=== PATIENT | male | born 1985 | race Native Hawaiian/Other Pacific Islander ===

== ENCOUNTER 2018-11-18 14:26 | Emergency (ER) | payer MEDICAID ==
[~2018-11-18] VITALS: Ht 162.6 cm; Wt 63.5 kg
[2018-11-18 15:15] LABS: BASOPHILS ABSOLUTE AUTO 0.07 K/mm3 (0.00-0.23); BASOPHILS PERCENT AUTO 1 % (0-2); EOSINOPHILS ABSOLUTE AUTO 0.32 K/mm3 (0.00-0.68); EOSINOPHILS PERCENT AUTO 5 % (0-6); Hematocrit 35.4 % (37.0-53.0); Hemoglobin 10.4 g/dL (13.5-17.5); IMMATURE GRAN ABSOLUTE AUTO 0.03 K/mm3 (0.00-0.10); IMMATURE GRAN PERCENT AUTO 1 % (0-1); LYMPHOCYTES ABSOLUTE AUTO 1.08 K/mm3 (0.84-5.20); LYMPHOCYTES PERCENT AUTO 17 % (21-46); MONOCYTES ABSOLUTE AUTO 0.84 K/mm3 (0.16-1.47); MONOCYTES PERCENT AUTO 13 % (4-13); Mean Corpuscular HGB 21.3 pg (26.0-34.0); Mean Corpuscular HGB Conc 29.4 g/dL (31.5-36.5); Mean Corpuscular Volume 73 fL (80-100); Mean Platelet Volume 8.1 fL (9.1-12.4); NEUTROPHILS ABSOLUTE AUTO 4.01 K/mm3 (1.96-9.15); NEUTROPHILS PERCENT AUTO 63 % (41-73); Platelet Count 552 K/mm3 (150-400); RDW Standard Deviation 48.6 fL (35.1-46.3); Red Blood Cell Count 4.88 M/mm3 (4.30-5.90); White Blood Cell Count 6.35 K/mm3 (4.00-11.30)
[2018-11-18 15:44] LABS: Alanine Aminotransfer (ALT/SGP 29 U/L (12-78); Albumin, Blood 4.1 g/dL (3.4-5.0); Alk Phos 82 U/L (50-136); Anion Gap 12 mmol/L (6-16); Aspartate Aminotrans (AST/SGOT 16 U/L (12-37); Bilirubin, Total 0.3 mg/dL (0.1-1.0); Blood Urea Nitrogen 16 mg/dL (8-24); Bun/Creatinine Ratio 17.3 (12.0-20.0); C-REACTIVE PROTEIN, EXT RANGE <0.290 mg/dL (0.000-0.300); CO2, Blood 23 mmol/L (21-32); Calcium, Blood 9.3 mg/dL (8.5-10.1); Chloride, Blood 106 mmol/L (98-108); Creatinine, Blood 0.92 mg/dL (0.60-1.20); Globulin, Blood 4.1 g/dL (2.2-4.0); Glomerular Filtration Rate >60 (60-); Glucose, Blood 114 mg/dL (70-99); Potassium, Blood 3.7 mmol/L (3.5-5.5); Sodium, Blood 141 mmol/L (136-145); Total Protein, Blood 8.2 g/dL (6.4-8.2)
[2018-11-18] MEDS ORDERED: Norco 5-325 Ta1 EACH PO (17:39)
[2018-11-18] MEDS ORDERED: Robaxin-750750 MG PO (17:39)
== END 2018-11-18 17:54 | disposition home or self-care (01) ==
LOC: ER 14:26
PROVIDERS: Physician Assistant
DX: M54.17 Radiculopathy, lumbosacral region (principal)
CPT/HCPCS: 72100; 80053; 85025; 85651; 86140; 96374; 96375; 99283-25; J1170; J2405

== ENCOUNTER 2018-11-28 09:46 | Inpatient (IN) | payer OTHER ==
[~2018-11-28] VITALS: Ht 162.6 cm; Wt 71.4 kg
[~2018-11-28 09:46] MED LIST: Norco 5-325 Ta1 EACH PO; Robaxin-750750 MG PO
[2018-11-28 10:34] LABS: BASOPHILS ABSOLUTE AUTO 0.07 K/mm3 (0.00-0.23); BASOPHILS PERCENT AUTO 1 % (0-2); EOSINOPHILS ABSOLUTE AUTO 0.35 K/mm3 (0.00-0.68); EOSINOPHILS PERCENT AUTO 5 % (0-6); Hematocrit 38.9 % (37.0-53.0); Hemoglobin 11.3 g/dL (13.5-17.5); IMMATURE GRAN ABSOLUTE AUTO 0.03 K/mm3 (0.00-0.10); IMMATURE GRAN PERCENT AUTO 1 % (0-1); LYMPHOCYTES ABSOLUTE AUTO 1.15 K/mm3 (0.84-5.20); LYMPHOCYTES PERCENT AUTO 18 % (21-46); MONOCYTES ABSOLUTE AUTO 0.79 K/mm3 (0.16-1.47); MONOCYTES PERCENT AUTO 12 % (4-13); Mean Corpuscular HGB 21.1 pg (26.0-34.0); Mean Corpuscular Volume 73 fL (80-100); Mean Platelet Volume 8.6 fL (9.1-12.4); NEUTROPHILS ABSOLUTE AUTO 4.11 K/mm3 (1.96-9.15); NEUTROPHILS PERCENT AUTO 63 % (41-73); Platelet Count 509 K/mm3 (150-400); RDW Coefficient Variation 19.6 % (11.7-14.2); RDW Standard Deviation 48.9 fL (35.1-46.3); Red Blood Cell Count 5.36 M/mm3 (4.30-5.90)
[2018-11-28 10:51] LABS: Alanine Aminotransfer (ALT/SGP 33 U/L (12-78); Albumin, Blood 4.3 g/dL (3.4-5.0); Alk Phos 91 U/L (50-136); Anion Gap 8 mmol/L (6-16); Aspartate Aminotrans (AST/SGOT 24 U/L (12-37); Bilirubin, Total 0.3 mg/dL (0.1-1.0); Blood Urea Nitrogen 8 mg/dL (8-24); Bun/Creatinine Ratio 8.8 (12.0-20.0); CO2, Blood 25 mmol/L (21-32); Calcium, Blood 9.5 mg/dL (8.5-10.1); Chloride, Blood 105 mmol/L (98-108); Creatinine, Blood 0.91 mg/dL (0.60-1.20); Globulin, Blood 4.3 g/dL (2.2-4.0); Glomerular Filtration Rate >60 (60-); Glucose, Blood 101 mg/dL (70-99); Sodium, Blood 138 mmol/L (136-145); Total Protein, Blood 8.6 g/dL (6.4-8.2)
--- NOTE | 2018-11-28 13:20 | NUR ---
REPORT RECIEVED FROM CONNOR BOO RN. PT ARRIVED TO PCU 11 VIA GURNEY AND TRANSFERRED TO BED IND. PT IS ALERT AND OX3. PT REPORTS FALLING A COUPLE OF WEEKS AGO AND HITTING HIS BACK ON A STOVE. PT REPORTS HE HAD PAIN AFTER HIS FALL, PAIN IN HIS RIGHT LOWER FLANK THAT HE RATES AT A 9/10. ADDITIONAL TAB OF OXYCODONE GIVEN AT THIS TIME PER MD ORDERS. PT STATES HE CAME IN BECAUSE HE HAS A HX OF GI BLEED AND IS FMAILIAR WITH THE SIGNS AND SYMPTOMS. PT STATES HIS STOOL AT HOME HAS BEEN GOING FROM DARK AND TARRY TO [place]. PT STATES WHEN THE STOOL IS DARKER HE HAS PAIN IN HIS ABDOMEN. LS CTA, BIOX WNL ON RA. BT+. PT IS TENDER TO RLQ WITH LIGHT PALPATION. ABD SOFT. PPP. NO EDEMA PRESENT. 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 VSS. GI CONSULT CALLED INTO ANSWERING SERVICE.
[2018-11-28 15:06] LABS: Hematocrit 35.4 % (37.0-53.0); Hemoglobin 10.3 g/dL (13.5-17.5)
--- NOTE | 2018-11-28 17:47 | NUR ---
VSS. ASSESSMENT UNCHAGED. GOLYTELY STARTED.
--- NOTE | 2018-11-28 19:09 | NUR ---
PT HAS STARTED THE GOLYTELY PREP FOR COLONSCOPY PER DR. ARIAS ORDERS, PLAN TO SCOPE AT 9 AM. PT TOLERATING PREP WELL. NO ACUTE CHANGES THIS SHIFT, WILL REPORT TO ONCOMING RN.
[2018-11-28 21:16] LABS: Hematocrit 34.7 % (37.0-53.0); Hemoglobin 10.3 g/dL (13.5-17.5)
[2018-11-29 04:14] LABS: BASOPHILS ABSOLUTE AUTO 0.06 K/mm3 (0.00-0.23); BASOPHILS PERCENT AUTO 1 % (0-2); EOSINOPHILS ABSOLUTE AUTO 0.62 K/mm3 (0.00-0.68); EOSINOPHILS PERCENT AUTO 11 % (0-6); Hemoglobin 9.7 g/dL (13.5-17.5); IMMATURE GRAN ABSOLUTE AUTO 0.03 K/mm3 (0.00-0.10); IMMATURE GRAN PERCENT AUTO 1 % (0-1); LYMPHOCYTES ABSOLUTE AUTO 1.45 K/mm3 (0.84-5.20); LYMPHOCYTES PERCENT AUTO 25 % (21-46); MONOCYTES ABSOLUTE AUTO 0.84 K/mm3 (0.16-1.47); MONOCYTES PERCENT AUTO 14 % (4-13); Mean Corpuscular HGB Conc 28.5 g/dL (31.5-36.5); Mean Corpuscular Volume 74 fL (80-100); Mean Platelet Volume 8.3 fL (9.1-12.4); NEUTROPHILS ABSOLUTE AUTO 2.84 K/mm3 (1.96-9.15); NEUTROPHILS PERCENT AUTO 49 % (41-73); Platelet Count 455 K/mm3 (150-400); RDW Coefficient Variation 18.6 % (11.7-14.2); RDW Standard Deviation 49.3 fL (35.1-46.3); Red Blood Cell Count 4.61 M/mm3 (4.30-5.90); White Blood Cell Count 5.84 K/mm3 (4.00-11.30)
[2018-11-29 04:33] LABS: Anion Gap 5 mmol/L (6-16); Blood Urea Nitrogen 6 mg/dL (8-24); Bun/Creatinine Ratio 6.5 (12.0-20.0); CO2, Blood 27 mmol/L (21-32); Calcium, Blood 8.2 mg/dL (8.5-10.1); Chloride, Blood 105 mmol/L (98-108); Creatinine, Blood 0.93 mg/dL (0.60-1.20); Glomerular Filtration Rate >60 (60-); Glucose, Blood 95 mg/dL (70-99); Sodium, Blood 137 mmol/L (136-145)
--- NOTE | 2018-11-29 04:41 | NUR ---
SHIFT SUMMARY: PATIENT TO BE NPO AT 0600 FOR PROCEEDURE AT APPROX 0900. PATIENT VSS, NO ISSUES, COMPLIANT WITH CALL LIGHT AND DIRECTIONS, BED LOW AND LOCKED.
--- NOTE | 2018-11-29 07:34 | NUR ---
RECEIVED REPORT FROM LAKSHMI JETER, AND ASSUMED CARE OF PT.
--- NOTE | 2018-11-29 08:28 | NUR ---
PT TAKEN TO DAY SURGERY FOR COLONOSCOPY VIA [facility].
--- NOTE | 2018-11-29 08:43 | NUR ---
Ambulatory in PCU FROM BED TO [facility] Patient states colon prep results clear. History, Chart, Medications and Allergies reviewed before start of procedure.Lungs clear T/O to Auscultation. Patient confirms NPO status and agrees with scheduled surgery. Pre-Op teaching done. Pt verbalizes understanding.
[2018-11-29 08:50] LABS: Hemoglobin 9.9 g/dL (13.5-17.5)
--- NOTE | 2018-11-29 09:02 | NUR ---
11/29/18 0902 Emmanuel Quinonez PATIENT DETERMINED TO BE ASA APPROPRIATE FOR PROPOFOL SEDATION PRIOR TO START OF PROCEDURE BY . 3-LEAD EKG REVIEWED WITH PHYSICIAN PRIOR TO START OF PROCEDURE.PATIENT CONFIRMS NPO STATUS AND AGREES WITH SCHEDULED PROCEDURE.History, Chart, Medications and Allergies reviewed before start of procedure.MONITOR INTACT WITH CONTINUOUS PULSE OXIMETRY AND INTERMITTENT BP.O2 VIA N/C INTACT THROUGHOUT SEDATION/PROCEDURE.Bite Block Placed
--- NOTE | 2018-11-29 11:43 | NUR ---
THIS RN BEEN GIVEN REPORT AND IS ASSUMING CARE OF PT AT THIS TIME.
--- NOTE | 2018-11-29 11:43 | NUR ---
PT TO ROOM 224. FAMILY WITH PT.
--- NOTE | 2018-11-29 12:05 | NUR ---
CALLED REPORT TO LAKSHMI DOTSON, ON SURGICAL FLOOR, WHOM WILL ACCEPT CARE OF PT UPON TRANSFER TO ROOM 224. PT ESCORTED TO ROOM 224 BY TEQUILA QUINONEZ, VIA WHEELCHAIR.
--- NOTE | 2018-11-29 13:07 | NUR ---
DR SCHOFIELD HERE TO SEE PT.
--- NOTE | 2018-11-29 14:35 | NUR ---
PT REQ TO HAVE NORCO PILL REPORTS OXY MADE HIM ITCH SOME. SEE ORDER.
--- NOTE | 2018-11-29 16:38 | NUR ---
SHIFT SUMMARY PT WAS PCU TRANSFER TODAY. DR SCHOFIELD CAME TO SEE PT. PT EATING AND DRINKING. PT BEEN MED PRN FOR PAIN. PT BEEN ENC TO MINIMIZE NARCOTICS PER DR SCHOFIELD. PT BEEN UP IND IN ROOM IND.
--- NOTE | 2018-11-30 05:59 | NUR ---
SUMMARY: NO ACUTE CHANGE TONIGHT. PT IS A/O, VSS. REPORTS PAIN IN ABD AND BACK PAIN. PT REPORTS OXYCODONE MAKES HIS SKIN ITCH, FENTANYAL GIVEN. HAVING LIQUID STOOL, NO REPORT OF BLOODY BM. PT IS INDEPENDENT IN ROOM. NO SAFETY CONCERNS AT THIS TIME. WILL CTM AND REPORT TO DAY RN.
--- NOTE | 2018-11-30 16:04 | NUR ---
PT PROVIDED WITH LIST OF ACCEPTING PRIMARY CARE PROVIDERS. WILL CONTINUE TO MONITOR.
[2018-11-30] MEDS ORDERED: ACET325 PO (16:11)
[2018-11-30] MEDS ORDERED: CYCL10 PO (16:11)
--- NOTE | 2018-11-30 18:20 | NUR ---
DISCHARGE PT AND S/O PROVIDED WITH WRITTEN AND VERBAL DISCHARGE INSTRUCTIONS. THEY REPORTED UNDERSTANDING QUESTIONS WERE ANSWERED. JEFFERY CALLED TO [facility] PER PT REQUEST. PT ESCORTED OUT IN W/C BY CATHRYN MANDEL.
== END 2018-11-30 18:15 | disposition home or self-care (01) | DRG 394 ==
LOC: ER 09:46 → SURS 11:53 → PCU 11:53 → SURS 11-29 11:31
PROVIDERS: Emergency Medicine; Internal Medicine Gastroenterology; ADMIT Hospitalist
PROC: 0DJ08ZZ Inspection of Upper Intestinal Tract, Via Natural or Artificial Opening Endoscopic (ICD-10-PCS; principal; 2018-11-29 09:00)
PROC: 0DJD8ZZ Inspection of Lower Intestinal Tract, Via Natural or Artificial Opening Endoscopic (ICD-10-PCS; 2018-11-29 09:00)
DX: K64.2 Third degree hemorrhoids (principal); D62 Acute posthemorrhagic anemia; K50.00 Crohn's disease of small intestine without complications; Q85.00 Neurofibromatosis, unspecified; F17.210 Nicotine dependence, cigarettes, uncomplicated; I10 Essential (primary) hypertension; D12.0 Benign neoplasm of cecum; K62.89 Other specified diseases of anus and rectum; M54.5 Low back pain
CPT/HCPCS: 36415; 74177; 80048; 80053; 85014; 85018; 85025; 86850; 86900; 86901; 88305; 97110; 97162; 99285; A9270; A9270-GY; C9113; J0171; J2250; J2704; J3010; J3480; J7120; Q0163; Q9967

== ENCOUNTER 2018-12-10 13:31 | Emergency (ER) | payer OTHER ==
[~2018-12-10] VITALS: Ht 162.6 cm; Wt 68.0 kg
[~2018-12-10 13:31] MED LIST changes: +ACET325 PO; +CYCL10 PO
[2018-12-10 14:16] LABS: Source, Urine Clean Catch
[2018-12-10 14:17] LABS: BASOPHILS ABSOLUTE AUTO 0.06 K/mm3 (0.00-0.23); BASOPHILS PERCENT AUTO 1 % (0-2); EOSINOPHILS ABSOLUTE AUTO 0.34 K/mm3 (0.00-0.68); EOSINOPHILS PERCENT AUTO 6 % (0-6); Hematocrit 35.6 % (37.0-53.0); Hemoglobin 10.4 g/dL (13.5-17.5); IMMATURE GRAN ABSOLUTE AUTO 0.03 K/mm3 (0.00-0.10); IMMATURE GRAN PERCENT AUTO 1 % (0-1); LYMPHOCYTES ABSOLUTE AUTO 0.85 K/mm3 (0.84-5.20); LYMPHOCYTES PERCENT AUTO 15 % (21-46); MONOCYTES ABSOLUTE AUTO 0.68 K/mm3 (0.16-1.47); MONOCYTES PERCENT AUTO 12 % (4-13); Mean Corpuscular HGB 21.2 pg (26.0-34.0); Mean Corpuscular HGB Conc 29.2 g/dL (31.5-36.5); Mean Corpuscular Volume 73 fL (80-100); Mean Platelet Volume 8.3 fL (9.1-12.4); NEUTROPHILS ABSOLUTE AUTO 3.63 K/mm3 (1.96-9.15); NEUTROPHILS PERCENT AUTO 65 % (41-73); Platelet Count 627 K/mm3 (150-400); RDW Coefficient Variation 18.5 % (11.7-14.2); RDW Standard Deviation 48.3 fL (35.1-46.3); White Blood Cell Count 5.59 K/mm3 (4.00-11.30)
[2018-12-10 14:22] LABS: Bilirubin, Urine Neg (Neg); Blood, Urine Neg (Neg); Glucose Qualitative, Urine Neg (Neg); Ketones, Urine Neg (Neg); Leukocyte Esterase, Urine Neg (Neg); Nitrite, Urine Neg (Neg); Protein, Urine Neg (Neg); Urobilinogen, Urine NORM (Normal)
[2018-12-10 14:33] LABS: Appearance, Urine Clear (Clear); Color, Urine Yellow (P-Yellow)
[2018-12-10 14:35] LABS: Alanine Aminotransfer (ALT/SGP 32 U/L (12-78); Albumin, Blood 4.1 g/dL (3.4-5.0); Alk Phos 77 U/L (50-136); Anion Gap 7 mmol/L (6-16); Aspartate Aminotrans (AST/SGOT 14 U/L (12-37); Bilirubin, Total 0.3 mg/dL (0.1-1.0); Blood Urea Nitrogen 14 mg/dL (8-24); Bun/Creatinine Ratio 16.7 (12.0-20.0); CO2, Blood 24 mmol/L (21-32); Calcium, Blood 9.4 mg/dL (8.5-10.1); Chloride, Blood 107 mmol/L (98-108); Creatinine, Blood 0.84 mg/dL (0.60-1.20); Globulin, Blood 4.2 g/dL (2.2-4.0); Glomerular Filtration Rate >60 (60-); Glucose, Blood 92 mg/dL (70-99); Potassium, Blood 3.9 mmol/L (3.5-5.5); Sodium, Blood 138 mmol/L (136-145); Total Protein, Blood 8.3 g/dL (6.4-8.2)
== END 2018-12-10 17:14 | disposition home or self-care (01) ==
LOC: ER 13:31
PROVIDERS: Physician Assistant
DX: K64.2 Third degree hemorrhoids (principal); D64.9 Anemia, unspecified; Z87.891 Personal history of nicotine dependence
CPT/HCPCS: 36415; 80053; 81003; 82272; 85025; 86850; 86900; 86901; 99283

== ENCOUNTER 2018-12-29 15:54 | Emergency (ER) | payer OTHER ==
[~2018-12-29] VITALS: Ht 162.6 cm; Wt 73.0 kg
[2018-12-29 16:52] LABS: BASOPHILS ABSOLUTE AUTO 0.07 K/mm3 (0.00-0.23); BASOPHILS PERCENT AUTO 1 % (0-2); EOSINOPHILS ABSOLUTE AUTO 0.43 K/mm3 (0.00-0.68); EOSINOPHILS PERCENT AUTO 8 % (0-6); Hematocrit 34.2 % (37.0-53.0); IMMATURE GRAN ABSOLUTE AUTO 0.04 K/mm3 (0.00-0.10); IMMATURE GRAN PERCENT AUTO 1 % (0-1); LYMPHOCYTES ABSOLUTE AUTO 1.03 K/mm3 (0.84-5.20); LYMPHOCYTES PERCENT AUTO 19 % (21-46); MONOCYTES ABSOLUTE AUTO 0.71 K/mm3 (0.16-1.47); MONOCYTES PERCENT AUTO 13 % (4-13); Mean Corpuscular HGB 20.6 pg (26.0-34.0); Mean Corpuscular HGB Conc 29.2 g/dL (31.5-36.5); Mean Corpuscular Volume 70 fL (80-100); Mean Platelet Volume 8.3 fL (9.1-12.4); NEUTROPHILS ABSOLUTE AUTO 3.11 K/mm3 (1.96-9.15); NEUTROPHILS PERCENT AUTO 58 % (41-73); Platelet Count 562 K/mm3 (150-400); RDW Coefficient Variation 18.8 % (11.7-14.2); RDW Standard Deviation 45.4 fL (35.1-46.3); Red Blood Cell Count 4.86 M/mm3 (4.30-5.90); White Blood Cell Count 5.39 K/mm3 (4.00-11.30)
[2018-12-29 17:16] LABS: Alanine Aminotransfer (ALT/SGP 26 U/L (12-78); Alk Phos 83 U/L (50-136); Anion Gap 8 mmol/L (6-16); Aspartate Aminotrans (AST/SGOT 14 U/L (12-37); Bilirubin, Total 0.4 mg/dL (0.1-1.0); Blood Urea Nitrogen 12 mg/dL (8-24); Bun/Creatinine Ratio 13.4 (12.0-20.0); CO2, Blood 24 mmol/L (21-32); Calcium, Blood 9.5 mg/dL (8.5-10.1); Chloride, Blood 105 mmol/L (98-108); Creatinine, Blood 0.89 mg/dL (0.60-1.20); Globulin, Blood 3.9 g/dL (2.2-4.0); Glomerular Filtration Rate >60 (60-); Glucose, Blood 113 mg/dL (70-99); Potassium, Blood 3.7 mmol/L (3.5-5.5); Sodium, Blood 137 mmol/L (136-145); Total Protein, Blood 7.9 g/dL (6.4-8.2)
[2018-12-29 19:33] LABS: Source, Urine Clean Catch
[2018-12-29 19:40] LABS: Bilirubin, Urine Neg (Neg); Blood, Urine Neg (Neg); Glucose Qualitative, Urine Neg (Neg); Ketones, Urine Neg (Neg); Leukocyte Esterase, Urine Neg (Neg); Nitrite, Urine Neg (Neg); Protein, Urine 1+ (Neg); Urobilinogen, Urine NORM (Normal)
[2018-12-29 19:42] LABS: Appearance, Urine Clear (Clear); Color, Urine Yellow (P-Yellow)
[2018-12-29] MEDS ORDERED: RECTICARE30 GM PR (20:50)
== END 2018-12-29 21:36 | disposition home or self-care (01) ==
LOC: ER 15:54
PROVIDERS: Physician Assistant
DX: K92.2 Gastrointestinal hemorrhage, unspecified (principal); Z87.891 Personal history of nicotine dependence
CPT/HCPCS: 36415; 80053; 85025; 86850; 86900; 86901; 99283

== ENCOUNTER 2018-12-30 08:49 | Emergency (ER) | payer OTHER ==
[~2018-12-30] VITALS: Ht 177.8 cm; Wt 86.2 kg
[~2018-12-30 08:49] MED LIST changes: +RECTICARE30 GM PR
== END 2018-12-30 09:51 | disposition home or self-care (01) ==
LOC: ER 08:49
DX: K64.9 Unspecified hemorrhoids (principal)
CPT/HCPCS: 99283; J3010

== ENCOUNTER 2019-01-05 14:33 | Emergency (ER) | payer OTHER ==
[~2019-01-05] VITALS: Ht 162.6 cm; Wt 73.0 kg
[2019-01-05] MEDS ORDERED: Norco 5-325 Ta1 EACH PO (14:42)
== END 2019-01-05 16:25 | disposition home or self-care (01) ==
LOC: ER 14:33
DX: K62.89 Other specified diseases of anus and rectum (principal)
CPT/HCPCS: 99283; J2250

== ENCOUNTER 2019-01-06 12:05 | Day surgery (SDC) | payer OTHER ==
[~2019-01-06] VITALS: Ht 162.6 cm; Wt 70.4 kg
--- NOTE | 2019-01-06 12:47 | NUR ---
History, Chart, Medications and Allergies reviewed before start of procedure. Lungs clear T/O to Auscultation. Patient confirms NPO status and agrees with scheduled surgery. Pre-Op teaching done. Pt verbalizes understanding. Patient States Post-Procedure ride home has been arranged.
--- NOTE | 2019-01-06 14:38 | NUR ---
01/06/19 1438 Aguilar Wells NO PRE-OP ANTIBIOTICS ORDERED.
--- NOTE | 2019-01-06 17:34 | NUR ---
patient declined getting dressed at this time. talking with gene on phone at this time
--- NOTE | 2019-01-06 17:34 | NUR ---
offered to let patient get dressed while waiting for fiance to come back from pharmacy
--- NOTE | 2019-01-06 18:09 | NUR ---
gene has returned form pharmacy. calling will call ride to come and get. discharge instructions gone over with.
--- NOTE | 2019-01-06 18:22 | NUR ---
discharged at this time with all belongings and discharge instructions. iv removed Patient States Post-Procedure ride home has been arranged. Discharged via wheelchair to private car for ride home.
== END 2019-01-06 22:50 | disposition home or self-care (01) ==
LOC: ORSCMMR 12:05 → ORD 14:00 → ORSCMMR 14:00
PROVIDERS: Surgery
PROC: 06BY0ZC Excision of Hemorrhoidal Plexus, Open Approach (ICD-10-PCS; principal; 2019-01-06 14:00)
DX: K64.2 Third degree hemorrhoids (principal); K62.5 Hemorrhage of anus and rectum; Z87.891 Personal history of nicotine dependence
CPT/HCPCS: 88304; J1100; J1200; J1885; J2250; J2405; J2704; J3010; J7120

== ENCOUNTER 2019-03-04 08:45 | Emergency (ER) | payer OTHER ==
[~2019-03-04] VITALS: Ht 162.6 cm; Wt 74.8 kg
[2019-03-04 09:08] LABS: BASOPHILS ABSOLUTE AUTO 0.04 K/mm3 (0.00-0.23); BASOPHILS PERCENT AUTO 1 % (0-2); EOSINOPHILS ABSOLUTE AUTO 0.23 K/mm3 (0.00-0.68); EOSINOPHILS PERCENT AUTO 5 % (0-6); Hematocrit 38.4 % (37.0-53.0); Hemoglobin 10.9 g/dL (13.5-17.5); IMMATURE GRAN ABSOLUTE AUTO 0.01 K/mm3 (0.00-0.10); IMMATURE GRAN PERCENT AUTO 0 % (0-1); LYMPHOCYTES ABSOLUTE AUTO 0.66 K/mm3 (0.84-5.20); LYMPHOCYTES PERCENT AUTO 15 % (21-46); MONOCYTES PERCENT AUTO 11 % (4-13); Mean Corpuscular HGB 19.8 pg (26.0-34.0); Mean Corpuscular HGB Conc 28.4 g/dL (31.5-36.5); Mean Corpuscular Volume 70 fL (80-100); Mean Platelet Volume 8.4 fL (9.1-12.4); NEUTROPHILS ABSOLUTE AUTO 3.12 K/mm3 (1.96-9.15); NEUTROPHILS PERCENT AUTO 68 % (41-73); Platelet Count 566 K/mm3 (150-400); RDW Coefficient Variation 19.9 % (11.7-14.2); RDW Standard Deviation 48.3 fL (35.1-46.3); Red Blood Cell Count 5.51 M/mm3 (4.30-5.90); White Blood Cell Count 4.56 K/mm3 (4.00-11.30)
[2019-03-04 09:21] LABS: Anion Gap 8 mmol/L (6-16); Blood Urea Nitrogen 15 mg/dL (8-24); Bun/Creatinine Ratio 15.7 (12.0-20.0); CO2, Blood 24 mmol/L (21-32); Calcium, Blood 9.6 mg/dL (8.5-10.1); Chloride, Blood 106 mmol/L (98-108); Creatinine, Blood 0.96 mg/dL (0.60-1.20); Glomerular Filtration Rate >60 (60-); Glucose, Blood 95 mg/dL (70-99); Potassium, Blood 3.7 mmol/L (3.5-5.5); Sodium, Blood 138 mmol/L (136-145)
[2019-03-04] MEDS ORDERED: Acetaminophen-1 EAC1 PO (10:32)
[2019-03-04] MEDS ORDERED: IBUP800 PO (10:32)
== END 2019-03-04 10:54 | disposition home or self-care (01) ==
LOC: ER 08:45
PROVIDERS: Emergency Medicine
DX: R07.89 Other chest pain (principal); F17.200 Nicotine dependence, unspecified, uncomplicated
CPT/HCPCS: 71046; 80048; 85025; 93005; 93010; 96374; 96375; 96376; 99284-25; J1885; J2405; J3010

== ENCOUNTER → 2019-05-14 | Outpatient (CLI) | payer OTHER ==
[~2019-05-14] MED LIST changes: +Acetaminophen-1 EAC1 PO; +IBUP800 PO
== END | disposition home or self-care (01) ==
LOC: LAB SHORT 16:39 → LAB 16:39
DX: J06.9 Acute upper respiratory infection, unspecified (principal); H74.8X1 Other specified disorders of right middle ear and mastoid; H92.01 Otalgia, right ear
CPT/HCPCS: 87081

== ENCOUNTER 2019-06-04 18:32 | Observation (INO) | payer OTHER ==
[~2019-06-04] VITALS: Ht 165.1 cm; Wt 68.0 kg
[2019-06-04 20:25] LABS: BASOPHILS ABSOLUTE AUTO 0.06 K/mm3 (0.00-0.23); BASOPHILS PERCENT AUTO 1 % (0-2); EOSINOPHILS ABSOLUTE AUTO 0.24 K/mm3 (0.00-0.68); EOSINOPHILS PERCENT AUTO 5 % (0-6); Hematocrit 43.3 % (37.0-53.0); Hemoglobin 12.9 g/dL (13.5-17.5); IMMATURE GRAN ABSOLUTE AUTO 0.01 K/mm3 (0.00-0.10); IMMATURE GRAN PERCENT AUTO 0 % (0-1); LYMPHOCYTES ABSOLUTE AUTO 0.96 K/mm3 (0.84-5.20); LYMPHOCYTES PERCENT AUTO 18 % (21-46); MONOCYTES PERCENT AUTO 11 % (4-13); Mean Corpuscular HGB 21.9 pg (26.0-34.0); Mean Corpuscular HGB Conc 29.8 g/dL (31.5-36.5); Mean Corpuscular Volume 74 fL (80-100); Mean Platelet Volume 8.5 fL (9.1-12.4); NEUTROPHILS ABSOLUTE AUTO 3.48 K/mm3 (1.96-9.15); NEUTROPHILS PERCENT AUTO 65 % (41-73); Platelet Count 461 K/mm3 (150-400); RDW Coefficient Variation 21.5 % (11.7-14.2); RDW Standard Deviation 54.8 fL (35.1-46.3); Red Blood Cell Count 5.88 M/mm3 (4.30-5.90); White Blood Cell Count 5.35 K/mm3 (4.00-11.30)
[2019-06-04 20:53] LABS: Acetaminophen, Random <2.0 ug/mL (10.0-30.0); Alanine Aminotransfer (ALT/SGP 32 U/L (12-78); Alk Phos 84 U/L (50-136); Anion Gap 7 mmol/L (6-16); Aspartate Aminotrans (AST/SGOT 17 U/L (12-37); Bilirubin, Total 0.7 mg/dL (0.1-1.0); Blood Urea Nitrogen 11 mg/dL (8-24); Bun/Creatinine Ratio 12.4 (12.0-20.0); CO2, Blood 23 mmol/L (21-32); Calcium, Blood 9.2 mg/dL (8.5-10.1); Chloride, Blood 108 mmol/L (98-108); Creatinine, Blood 0.89 mg/dL (0.60-1.20); Ethanol (Alcohol), Blood, Med 5 mg/dL; Globulin, Blood 4.2 g/dL (2.2-4.0); Glomerular Filtration Rate >60 (60-); Glucose, Blood 88 mg/dL (70-99); Potassium, Blood 3.8 mmol/L (3.5-5.5); Salicylate 5.3 mg/dL (2.8-20.0); Sodium, Blood 138 mmol/L (136-145); Total Protein, Blood 8.2 g/dL (6.4-8.2)
[2019-06-05 10:22] LABS: Source, Urine Clean Catch
[2019-06-05 10:49] LABS: Appearance, Urine Clear (Clear); Bilirubin, Urine Neg (Neg); Blood, Urine Neg (Neg); Color, Urine Yellow (P-Yellow); Glucose Qualitative, Urine Neg (Neg); Ketones, Urine 2+ (Neg); Leukocyte Esterase, Urine Neg (Neg); Nitrite, Urine Neg (Neg); Protein, Urine 1+ (Neg); Specific Gravity, Urine 1.025 (1.003-1.022); Urobilinogen, Urine 2+ (Normal)
[2019-06-05 11:05] LABS: U Amphetamine Screen Not Detected; U Barbituate Screen Not Detected; U Benzodiazapine Screen Not Detected; U Buprenorphine Screen Not Detected; U Cannabinoids Screen DETECTED; U Cocaine Screen Not Detected; U Methadone Screen Not Detected; U Methamphetamine Screen Not Detected; U Opiates Screen Not Detected; U Oxycodone Screen Not Detected; U Phencyclidine Screen Not Detected; U Propoxyphene Screen Not Detected
== END 2019-06-05 15:09 ==
LOC: ER 18:32 → EOR 18:33
PROVIDERS: Physician Assistant; ADMIT Emergency Medicine
DX: F32.9 Major depressive disorder, single episode, unspecified (principal); F41.9 Anxiety disorder, unspecified; F41.0 Panic disorder [episodic paroxysmal anxiety]; F17.200 Nicotine dependence, unspecified, uncomplicated; G47.00 Insomnia, unspecified
CPT/HCPCS: 80053; 84443; 85025; 99285; G0378; G0480; Q3014